=== PATIENT | female | born 1980 | race Caucasian/White ===

== ENCOUNTER 2016-05-27 16:29 | Emergency (ER) | payer OTHER ==
[~2016-05-27] VITALS: Ht 170.2 cm; Wt 66.0 kg
[~2016-05-27 16:29] MED LIST: PRENTAB26 PO
[2016-05-27 16:31] VITALS: BP 128/76; PULSE 67; TEMP 36.4; O2SAT 100; Ht 170.2 cm; Wt 66.0 kg
[2016-05-27] MEDS ORDERED: XYLOCAINE 1%/SOD BICARB 20 ML VIAL INFIL ONE (16:45)
[2016-05-27] MEDS ORDERED: CALC-354 PO (16:45)
[2016-05-27] MEDS ORDERED: MULT-240 PO (16:45)
[2016-05-27] MEDS ORDERED: BUPIVACAINE 0.5 % 5 MG/1 ML MPF 30ML VIAL INFIL ONE (16:45)
[2016-05-27] MEDS ORDERED: SULF800T23 PO (17:29)
--- NOTE | 2016-05-27 17:29 | EMERGENCY ROOM VISIT NOTE ---
ED Visit Note First contact with patient: 16:30 CHIEF COMPLAINT: Finger laceration HISTORY OF PRESENT ILLNESS: This 35-year-old female patient presents to the emergency department ambulatory after cutting the left fifth finger just prior to arrival. 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 There is minimal bleeding at this time. She reports some numbness in the finger. She has full extension, but has difficulty flexing the finger, especially against resistance. The patient rates the pain as dull and 2 /10. There is an additional, smaller laceration to the right second finger. The patient's tetanus shot is up to date. REVIEW OF SYSTEMS: A 6 system review of systems was completed with positives and pertinent negatives listed in the HPI. ALLERGIES: Cephalosporins, penicillins MEDICATIONS: Multivitamin, Caltrate PMH: No pertinent past medical history SOCIAL HISTORY: The patient lives locally with family. Nonsmoker. PHYSICAL EXAM: Vital Signs: Reviewed Nurse's notes, vital signs stable. GENERAL : This is a 35-year-old female, in no acute distress, well developed, well nourished. SKIN: There is a 2 cm long laceration on the palmar aspect of the left fifth finger. The edges gape apart with traction. There is no foreign material in the wound and it looks clean. There is minimal bleeding. The flexor tendon can be seen in the base of the wound and appears to be fully lacerated. Full extension of the finger, but patient is unable to flex the finger against resistance. Full range of motion of the wrist and other fingers. There is an additional laceration to the right second finger which does not gape and there is no active bleeding. Capillary refill less than 2 seconds. Normal sensation to light and sharp touch. EMERGENCY DEPARTMENT COURSE: I examined the patient. Verbal consent was obtained to perform the procedure. Using sterile technique the wound was cleansed with Betadine. 5 ml of a 2-1 solution of 1% buffered lidocaine and Marcaine was used to perform a digital block to anesthetize the patient. The area was sterilely draped. Once the patient was anesthetized, the wound was copiously irrigated under pressure with sterile saline. The wound was explored as above. The patient does appear to have fully lacerated flexor tendon. The laceration was repaired using 8 simple interrupted 5-0 nylon sutures. The patient tolerated the procedure well. Hemostasis was achieved. The area was cleaned with sterile saline and dressed with bacitracin ointment and bandage. The laceration of the right second digit was cleansed with sterile saline and Betadine and was repaired using 3 layers of Dermabond. Hemostasis was achieved. The patient was placed in a metal finger splint. I did speak with Dr. Clay, who recommended following up with Dr. Gloria early this week. The patient does have an allergy to cephalosporins and penicillins, so she will be placed on Bactrim to prevent infection. The patient was discharged home in good condition. DIAGNOSIS: Finger laceration with tendon involvement Problem List Medical Problems: (1) Normal Status: Resolved (2) Vaginal delivery Status: Resolved Current/Historical Medications Scheduled Calcium Carbonate-Cholecalcife (Caltrate 600+D), 2 TABS PO HS Multiple Vitamins W/ Minerals (Womens One Daily), 1 TAB PO HS Sulfa/Trimethoprim (Bactrim Ds 800MG/160MG), 1 TAB PO BID Allergies Coded Allergies: Cephalosporins (Verified Allergy, Unknown, HIVES, 07/28/15) Penicillins (Verified Allergy, Unknown, HIVES, 07/28/15) Vital Signs Date Time Temp Pulse Resp B/P Pulse Ox O2 Delivery O2 Flow Rate FiO2 05/27/16 16:31 36.4 67 18 128/76 100 Room Air Medications Administered Medications (Trade) Dose Ordered Sig/Clemente Route Start Time Stop Time Status Last Admin Dose Admin Lidocaine HCl (Buffered Lidocaine 1% Inj) 20 ml ONE ONCE INFIL 05/27/16 16:45 05/27/16 16:46 DC 05/27/16 16:38 20 ML Bupivacaine HCl (Marcaine 0.5% MPF Inj) 30 ml NOW ONCE INFIL 05/27/16 16:45 05/27/16 16:46 DC 05/27/16 16:40 30 ML Trimethoprim/ Sulfamethoxazole (Sulfameth/ Trimeth Ds 800/ 160MG Home Pack) 1 homepack UD ONCE PO 05/27/16 17:30 05/27/16 17:31 DC 05/27/16 17:37 1 HOMEPACK Departure Information Impression Primary Impression: Finger laceration involving tendon Dispostion Home / Self-Care Condition GOOD Prescriptions Sulfa/Trimethoprim (Bactrim Ds 800MG/160MG) Tab 1 TAB PO BID for 7 Days, #14 TAB Prov: Trisha Colon PA-C 05/27/16 Referrals Radha Lou M.D. (PCP) Nic Gloria MD Patient Instructions My [facility] Problem Qualifiers Primary Impression: Finger laceration involving tendon Encounter type: initial encounter Qualified Codes: S61.219A - Laceration without foreign body of unspecified finger without damage to nail, initial encounter; S61.209A - Unspecified open wound of unspecified finger without damage to nail, initial encounter
[2016-05-27] MEDS ORDERED: SEPTRA DS HOME PACK 1 EA VIAL PO ONE (17:30)
== END 2016-05-27 17:43 | disposition home or self-care (01) ==
LOC: C.EDD 16:29
DX: S61.219A Laceration without foreign body of unspecified finger without damage to nail, initial encounter (principal); W25.XXXA Contact with sharp glass, initial encounter

== ENCOUNTER → 2016-08-04 | Outpatient (CLI) | payer OTHER ==
[~2016-08-04] MED LIST changes: +CALC-354 PO; +MULT-240 PO; -PRENTAB26 PO
== END | disposition home or self-care (01) ==
LOC: C.PAPS 11:34
PROVIDERS: ATTEND Obstetrics & Gynecology
DX: Z12.4 Encounter for screening for malignant neoplasm of cervix (principal)

== ENCOUNTER → 2017-08-13 | Outpatient (CLI) | payer OTHER | END | disposition home or self-care (01) | LOC: C.PAPS 11:18 | PROVIDERS: ATTEND Obstetrics & Gynecology | DX: Z12.4 Encounter for screening for malignant neoplasm of cervix (principal) ==